=== PATIENT | female | born 1970 ===

== ENCOUNTER 2016-09-10 12:15 | Emergency (ER) | payer MEDICAID ==
[2016-09-10 12:24] VITALS: BP 154/87; PULSE 99; RESP 13; TEMP 97.6; O2SAT 100
--- NOTE | 2016-09-10 12:49 | C.PDOC ---
History Of Present Illness 46 y/o female c/o itching to left side of neck since this morning. pt has been scratching area incessantly. pt believes she was bitten by something last night. pt denies any difficulty swallowing or breathing. no fever or chills. Time Seen by Provider: 09/10/16 12:27 Chief Complaint (Nursing): Abnormal Skin Integrity History Per: Patient History/Exam Limitations: no limitations Onset/Duration Of Symptoms: Days (1) Current Symptoms Are (Timing): Worse Location Of Injury: Left: Neck Quality Of Symptoms: Painful, Swollen Severity: Moderate Past Medical History Reviewed: Historical Data, Nursing Documentation, Vital Signs Vital Signs: Last Vital Signs Temp 97.6 F 09/10/16 12:22 Pulse 99 H 09/10/16 12:22 Resp 13 09/10/16 12:22 BP 154/87 H 09/10/16 12:22 Pulse Ox 100 09/10/16 12:54 - Medical History PMH: HTN Surgical History: No Surg Hx Family History: States: Unknown Family Hx - Social History Hx Alcohol Use: No Hx Substance Use: No Review Of Systems Constitutional: Negative for: Fever, Chills ENT: Negative for: Ear Pain, Nose Pain, Mouth Pain, Throat Pain, Throat Swelling Respiratory: Negative for: Shortness of Breath Skin: Positive for: Other (itchy area left neck) Physical Exam - Physical Exam Appears: Non-toxic, No Acute Distress Skin: Normal Color, Warm, Dry, Other (1 cm tall x 4 cm wide area of erythema, warmth, edema with punctate raquel on left side of neck. ) Head: Atraumatic, Normacephalic Eye(s): bilateral: Normal Inspection Oral Mucosa: Moist Tongue: Normal Appearing Throat: Normal, No Erythema Neck: Normal ROM, Other (swelling to left side neck- see description in skin) ED Course And Treatment O2 Sat by Pulse Oximetry: 100 Medical Decision Making Medical Decision Making: pt given rx for topical hydrocortisone for itch and po keflex; pt advised to return to ed [facility] for any worse swelling. difficulty breathing or swallowing. Disposition Counseled Patient/Family Regarding: Diagnosis, Need For Followup, Rx Given - Disposition Referrals: Shiv Lara MD [Staff Provider] - Disposition: HOME/ ROUTINE Disposition Time: 12:46 Condition: STABLE Additional Instructions: Apply hydrocortisone cream to neck 2 times a day. Apply cold packs to left side neck (over thin cloth) several times a day to help with swelling. Take antibiotic as prescribed. FOlow up with Dr Lara on Tuesday. Return to ER if swelling or redness increase, you develop fever, have any difficulty breathing or swallowing. Prescriptions: Cephalexin [cephalexin] 500 mg PO QID #28 cap Hydrocortisone 1% Cream [Cortizone 1% Cream] 1 applic TOP BID #1 tube Instructions: Insect Bite or Sting (ED) Forms: General Discharge Instructions - Clinical Impression Clinical Impression: Insect bite of neck, infected
== END 2016-09-10 13:04 | disposition home or self-care (01) ==
LOC: C.ER 12:15
DX: S10.96XA Insect bite of unspecified part of neck, initial encounter (principal); L08.9 Local infection of the skin and subcutaneous tissue, unspecified; W57.XXXA Bitten or stung by nonvenomous insect and other nonvenomous arthropods, initial encounter

== ENCOUNTER 2017-10-16 13:10 | Emergency (ER) | payer MEDICAID ==
[2017-10-16 13:27] VITALS: BP 137/84; PULSE 98; RESP 18; TEMP 98.2; O2SAT 100
--- NOTE | 2017-10-16 13:46 | C.PDOC ---
History Of Present Illness 47 year old female presents to the ED complaining of dental pain that began 2 days ago. Patient states she felt pain to the left side of mouth when she was eating on Tuesday night. This morning she woke up with swelling prompting ED visit. She denies any fever/chills, trouble breathing or swallowing. She reports she will go to the dentist tomorrow. Time Seen by Provider: 10/16/17 13:18 Chief Complaint (Nursing): Dental Pain History Per: Patient History/Exam Limitations: no limitations Onset/Duration Of Symptoms: Days Current Symptoms Are (Timing): Still Present Severity: Moderate Quality: Positive for: "Pain" Past Medical History Reviewed: Historical Data, Nursing Documentation, Vital Signs Vital Signs: Last Vital Signs Temp 98.2 F 10/16/17 13:25 Pulse 98 H 10/16/17 13:25 Resp 18 10/16/17 14:05 BP 137/84 10/16/17 13:25 Pulse Ox 100 10/16/17 14:12 - Medical History PMH: HTN Surgical History: No Surg Hx Family History: States: No Known Family Hx - Social History Hx Alcohol Use: No Hx Substance Use: No Review Of Systems Except As Marked, All Systems Reviewed And Found Negative. Constitutional: Negative for: Fever, Chills ENT: Positive for: Mouth Pain (Left side) Respiratory: Negative for: Shortness of Breath Physical Exam - Physical Exam Appears: Non-toxic, No Acute Distress Skin: Normal Color, Warm, Dry Head: Atraumatic, Normacephalic Eye(s): bilateral: Normal Inspection, EOMI Ear(s): Bilateral: Normal Nose: Normal Oral Mucosa: Moist Teeth: No Normal Dentition (Poor dentition ), Caries (Large zita ), Tender To Palpation (Tenderness to left mandibular premolar) Gingiva: Erythema, Swelling, Tender (Tenderness to left mandibular premolar), No Abscess Throat: No Erythema, No Exudate Neck: Normal ROM, Supple Chest: Symmetrical Cardiovascular: Rhythm Regular Respiratory: Normal Breath Sounds, No Accessory Muscle Use, Other (Speaking full sentences) Neurological/Psych: Oriented x3, Normal Speech Gait: Steady ED Course And Treatment O2 Sat by Pulse Oximetry: 100 (RA) Pulse Ox Interpretation: Normal Progress Note: Patient given Amoxicillin and Tramadol. Patient advised to follow up with the dentist tomorrow for further evaluation.Return to the emergency department at any time if symptoms persist or worsen. Patient given Rx for Naproxen and Amoxicillin. Disposition - Disposition Disposition: HOME/ ROUTINE Disposition Time: 13:43 Condition: STABLE Additional Instructions: Follow up with your primary medical doctor or clinic in 2-5 days for further evaluation. Take medications as prescribed. Return to the emergency department at any time if symptoms persist or worsen. Prescriptions: Amoxicillin 875 mg PO BID #14 tablet Naproxen [Naprosyn] 1 tab PO BID PRN #20 tab PRN Reason: Pain Instructions: Dental Pain (DC) Forms: [employer] (Ecuadorean) - Clinical Impression Clinical Impression: Dental caries - PA / FLOOR COVERING [employer]OR / Resident Statement MD/DO has reviewed & agrees with the documentation as recorded. - Scribe Statement The provider has reviewed the documentation as recorded by the Scribluna Fonseca All medical record entries made by the Anibal were at my direction and personally dictated by me. I have reviewed the chart and agree that the record accurately reflects my personal performance of the history, physical exam, medical decision making, and the department course for this patient. I have also personally directed, reviewed, and agree with the discharge instructions and disposition.
== END 2017-10-16 14:05 | disposition home or self-care (01) ==
LOC: C.ER 13:10
DX: K02.9 Dental caries, unspecified (principal)